=== PATIENT | male | born 1995 | race Caucasian/White ===

== ENCOUNTER 2025-04-11 18:06 | Emergency (ER) | payer BC ==
[2025-04-11 18:11] VITALS: BP 107/60; PULSE 61; RESP 18; TEMP 98.3; BMI 23.2
[2025-04-11] MEDS ORDERED: ACETAMINOPHEN 325 MG TABLET (FP) ONE (18:52)
[2025-04-11] MEDS: ACETAMINOPHEN 500 MG TABLET (FP) PO ONE (18:54)
== END 2025-04-11 19:33 | disposition home or self-care (01) ==
LOC: JERFT 18:06
DX: S80.12XA Contusion of left lower leg, initial encounter (principal); S90.32XA Contusion of left foot, initial encounter; X58.XXXA Exposure to other specified factors, initial encounter
CPT/HCPCS: 73590-TC-LT-FY; 73610-TC-LT-FY; 73630-TC-LT; 99283-25